=== PATIENT | male | born 1950 | race Caucasian/White ===

== ENCOUNTER 2021-03-23 18:13 | Emergency (ER) | payer OTHER, MEDICAID ==
[~2021-03-23] VITALS: Ht 182.9 cm; Wt 99.8 kg
[2021-03-23 18:32] VITALS: BP 125/71
[2021-03-25] MEDS ORDERED: NORCO5 PO (11:05)
== END 2021-03-23 20:12 | disposition left against medical advice (07) ==
LOC: M.ERS 18:13
DX: M54.9 Dorsalgia, unspecified (principal); Z53.21 Procedure and treatment not carried out due to patient leaving prior to being seen by health care provider